=== PATIENT | female | born 1965 | race Caucasian/White ===

== ENCOUNTER 2017-03-16 11:40 | Outpatient (CLI) | payer BC ==
[2017-03-16 15:25] LABS: ALBUMIN/GLOBULIN RATIO 1.7 (1.0-2.2); BILIRUBIN,TOTAL 0.6 mg/dL (0.2-1.0); CALCIUM 9.3 mg/dL (8.5-10.3); CREATININE 0.8 mg/dL (0.4-1.0); POTASSIUM 4.6 mmol/L (3.5-5.0); TOTAL PROTEIN 6.9 g/dL (6.7-8.2)
[2017-03-16 15:41] LABS: BASOPHILS % (AUTO) 0.9 %; EOSINOPHILS # (AUTO) 0.1 10^3/uL (0.0-0.7); EOSINOPHILS % (AUTO) 3.5 %; HCT - HEMATOCRIT 40.7 % (37.0-47.0); HGB - HEMOGLOBIN 13.8 g/dL (12.0-16.0); LYMPHOCYTES # (AUTO) 1.6 10^3/uL (1.5-3.5); LYMPHOCYTES % (AUTO) 40.7 %; MEAN CORPUSCULAR HEMOGLOBIN 31.4 pg (27.0-31.0); MEAN CORPUSCULAR HGB CONC 33.8 g/dL (32.0-36.0); MEAN PLATELET VOLUME 8.2 fL (7.9-10.8); MONOCYTES # (AUTO) 0.4 10^3/uL (0.0-1.0); MONOCYTES % (AUTO) 9.4 %; NEUTROPHILS # (AUTO) 1.8 10^3/uL (1.5-6.6); NEUTROPHILS % (AUTO) 45.5 %; RED BLOOD COUNT 4.38 10^6/uL (4.20-5.40); RED CELL DISTRIBUTION WIDTH 13.5 % (12.0-15.0)
[2017-03-16 16:13] LABS: THYROID STIMULATING HORMONE 1.03 uIU/mL (0.34-5.60)
== END 2017-03-16 11:41 | disposition home or self-care (01) ==
LOC: LAB.R 11:40
PROVIDERS: ATTEND Physician Assistant Medical
DX: E55.9 Vitamin D deficiency, unspecified (principal); L65.9 Nonscarring hair loss, unspecified; Z79.899 Other long term (current) drug therapy; E03.9 Hypothyroidism, unspecified
CPT/HCPCS: 80053; 82306; 82607; 82728; 83735; 84439; 84443; 84481; 85025

== ENCOUNTER 2017-04-03 10:10 | Outpatient (CLI) | payer BC ==
--- NOTE | 2017-04-04 16:12 | XRAY Report ---
THORACOLUMBAR JUNCTION, TWO VIEWS: 04/03/2017 HISTORY: Pain. FINDINGS: Two views of the thoracolumbar junction show no evidence of fracture, bone destruction, si gnificant degenerative change or other abnormality. Imaging is performed from approximately mid T10 through inferior L3. IMPRESSION: NEGATIVE THORACOLUMBAR JUNCTION. JOB #: [id number] EXT JOB #:[id number]
== END 2017-04-03 10:11 | disposition home or self-care (01) ==
LOC: DI 10:10
PROVIDERS: ATTEND Physician Assistant Medical
DX: M54.9 Dorsalgia, unspecified (principal)
CPT/HCPCS: 72080

== ENCOUNTER 2018-09-06 09:04 | Outpatient (CLI) | payer BC ==
--- NOTE | 2018-09-09 09:00 | Mammography Report ---
Reason: SCREENING MAMMO Procedure Date: 09/06/2018 Accession Number: [id number] / [id number] Procedure: CAROLYN - Screening Mammo w/Torres CPT Code: FULL RESULT: EXAM: Screening Mammo w/[facility] DATE: 09/06/2018 9:37 AM CLINICAL HISTORY: Routine screening. No reported personal history of breast cancer. Family history breast cancer paternal grandmother, age unknown. TECHNIQUE: (B) - Bilateral CC and MLO views were obtained. COMPARISON: 10/29/2015 through 03/04/2014 PARENCHYMAL PATTERN: (A) - The breasts demonstrate scattered fibroglandular densities bilaterally. FINDINGS: Bilateral breasts There are no suspicious masses, calcifications, or areas of distortion. IMPRESSION: Negative examination. BI-RADS category 1. RECOMMENDATION: (ANNUAL) - Recommend routine annual screening mammography. BI-RADS CATEGORY: (1) - Negative. STANDARD QUALIFYING STATEMENTS: 1. This examination was not reviewed with the aid of Computer-Aided Detection (CAD). 2. A negative or benign imaging report should not preclude biopsy if clinically suspicious findings are present. 3. Dense breasts may obscure an underlying neoplasm. 4. This examination was reviewed with the aid of 3D breast imaging (tomosynthesis).
== END 2018-09-06 09:05 | disposition home or self-care (01) ==
LOC: DI 09:04
PROVIDERS: ATTEND Family Medicine
DX: Z12.31 Encounter for screening mammogram for malignant neoplasm of breast (principal); Z80.3 Family history of malignant neoplasm of breast
CPT/HCPCS: 77063; 77067

== ENCOUNTER 2018-11-08 13:28 | Outpatient (CLI) | payer BC | END 2018-11-08 13:29 | disposition home or self-care (01) | LOC: RT 13:28 | PROVIDERS: ATTEND Family Medicine | DX: G43.909 Migraine, unspecified, not intractable, without status migrainosus (principal) | CPT/HCPCS: 93005 ==

== ENCOUNTER 2020-03-17 11:19 | Outpatient (CLI) | payer BC ==
--- NOTE | 2020-03-17 12:06 | XRAY Report ---
PROCEDURE: Thoracic Spine 2 View INDICATIONS: INCREASING PAIN IN HOSSEIN NUMBNESS UP EXTREMITIES TECHNIQUE: 3 views of the thoracic spine were acquired. COMPARISON: None. FINDINGS: Bones: No fractures or dislocations. No suspicious bony lesions. 12 pairs of ribs are noted, and a ppear intact where visualized. Soft tissues: No paravertebral stripe thickening. IMPRESSION: This is a normal study. Reviewed by: Yadiel Bravo MD on 03/17/2020 12:05 PM [facility] Approved by: Yadiel Bravo MD on 03/17/2020 12:05 PM [facility] Station ID: [id number]
--- NOTE | 2020-03-17 12:18 | XRAY Report ---
PROCEDURE: Lumbar Spine 2 View INDICATIONS: INCREASING PAIN IN HOSSEIN NUMBNESS UP EXTREMITIES TECHNIQUE: 2 views of the lumbar spine were acquired. COMPARISON: Thoracic spine plain films 03/17/2020 reviewed. Also, thoracolumbar spine plain films FINDINGS: Bones: 5 [id number]-[id number]-[id number] vertebrae are present. There is normal bony alignment. No vertebral body compression fractures. No suspicious bony lesions. There is a mild degree of degenerative disc heigh t reduction at L5-S1. Moderate facet osteoarthritis is present that becomes progressively more promin ent from L3 through S1. Soft tissues: Overlying bowel gas pattern is normal. No suspicious soft tissue calcifications. IMPRESSION: Progressively greater degenerative disc disease and facet osteoarthritis is seen as the lumbosacral junction is approached, with likelihood of spinal and foraminal stenosis at L5-S1. Reviewed by: Yadiel Bravo MD on 03/17/2020 12:17 PM PST Approved by: Yadiel Bravo MD on 03/17/2020 12:17 PM PST Station ID: [id number]
--- NOTE | 2020-03-17 12:20 | XRAY Report ---
PROCEDURE: Cervical Spine 2 View INDICATIONS: INCREASING PAIN IN HOSSEIN NUMBNESS UP EXTREMITIES TECHNIQUE: 3 view(s) of the cervical spine were acquired. COMPARISON: Thoracic spine plain films 03/17/2020, same date. FINDINGS: Bones: No fractures or dislocations to the T1 level. The lateral masses of C1 appear intact on the odontoid view. No suspicious bony lesions. Note is made of moderate degenerative disc disease on th e lateral view at C6-C7, without subluxation. Small anterior and posterior projecting osteophytes at this level could produce a mild degree of spinal stenosis. Soft tissues: No prevertebral soft tissue swelling. IMPRESSION: Moderate degenerative disc disease C6-C7 with potential for mild secondary spinal stenos is. Reviewed by: Yadiel Bravo MD on 03/17/2020 12:18 PM PST Approved by: Yadiel Bravo MD on 03/17/2020 12:18 PM PST Station ID: [id number]
== END 2020-03-17 11:20 | disposition home or self-care (01) ==
LOC: DI 11:19
PROVIDERS: ATTEND Nurse Practitioner Family
DX: M54.6 Pain in thoracic spine (principal); M47.817 Spondylosis without myelopathy or radiculopathy, lumbosacral region; M47.816 Spondylosis without myelopathy or radiculopathy, lumbar region; M51.37 Other intervertebral disc degeneration, lumbosacral region; M50.323 Other cervical disc degeneration at C6-C7 level
CPT/HCPCS: 72040; 72070; 72100

== ENCOUNTER 2020-11-24 07:00 | Outpatient (CLI) | payer BC ==
[2020-11-25 12:29] LABS: BILIRUBIN,URINE NEGATIVE (NEGATIVE); GLUCOSE, URINE (UA) NEGATIVE (NEGATIVE); KETONES,URINE (UA) NEGATIVE (NEGATIVE); LEUKOCYTE ESTERASE, URINE NEGATIVE (NEGATIVE); NITRITE,URINE NEGATIVE (NEGATIVE); OCCULT BLOOD,URINE TRACE-INTA (NEGATIVE); PH,URINE 6.5 PH (5.0-7.5); PROTEIN,URINE NEGATIVE (NEGATIVE); UROBILINOGEN,URINE 0.2 (NORMAL) E.U./dL (NORMAL)
[2020-11-25 12:31] LABS: CLARITY,URINE CLEAR (CLEAR)
[2020-11-25 13:01] LABS: BACTERIA,URINE Rare /HPF (None Seen); RBC,URINE 0-5 /HPF (0-5); SQUAMOUS EPITHELIAL CELL,UR RARE Squamous (<= Few); WBC,URINE 0-3 /HPF (0-5)
== END 2020-11-24 23:59 | disposition home or self-care (01) ==
LOC: LAB.R 07:00
PROVIDERS: ATTEND Obstetrics & Gynecology
DX: R32 Unspecified urinary incontinence (principal)
CPT/HCPCS: 81001; 87086

== ENCOUNTER 2021-03-16 08:31 | Outpatient (CLI) | payer BC ==
--- NOTE | 2021-03-17 09:21 | Mammography Report ---
BILATERAL DIGITAL SCREENING MAMMOGRAM 3D/2D: 03/16/2021 CLINICAL: Routine screening. Comparison is made to exams dated: 09/06/2018 mammogram and 10/29/2015 mammogram - [facility]. The tissue of both breasts is heterogeneously dense. This may lower the sensitivity of sandra mography. No significant masses, calcifications, or other findings are seen in either breast. There has been no significant interval change. IMPRESSION: NEGATIVE There is no mammographic evidence of malignancy. A 1 year screening mammogram is recommended. This exam was interpreted at Station ID: [id number]. NOTE: For mammograms, a report in lay terms will be sent to the patient. Approximately 15% of breast malignancies will not be visualized mammographically. In the management of a palpable breast mass, a negative mammogram must not discourage biopsy of a clinically suspicious lesion. Electronically Signed By: Clayton smith/taylor:03/16/2021 09:06:45 ACR BI-RADS Category 1: Negative 3341F PARENCHYMAL PATTERN: (D) - The breast(s) demonstrate(s) heterogeneously dense fibroglandular stacy muniz. BI-RADS CATEGORY: (1) - 1 RECOMMENDATION: (ANNUAL) - Recommend routine annual screening mammography. [id number] 1 year screening LATERALITY: (B)
== END 2021-03-16 08:32 | disposition home or self-care (01) ==
LOC: DI 08:31
DX: Z12.31 Encounter for screening mammogram for malignant neoplasm of breast (principal)

== ENCOUNTER 2021-05-06 08:49 | Outpatient (CLI) | payer BC ==
--- NOTE | 2021-05-06 10:34 | CT Report ---
PROCEDURE: Sinuses INDICATIONS: SINUSITIS-ACUTE, NASAL SINUS POLYP TECHNIQUE: Noncontrast 3.0 mm axial images acquired from the frontal sinuses to the mid-sella, with coronal and sagittal reformats. For radiation dose reduction, the following was used: automated exposure control , adjustment of mA and/or kV according to patient size. COMPARISON: None. FINDINGS: Image quality: Excellent. Maxillary Sinuses: No bony remodeling or destruction. Minimal mucosal thickening is seen involving the inferior maxillary sinuses. Ethmoid Air Cells: No bony remodeling or destruction. Sinuses are clear. Sphenoid Sinuses: Sphenoid sinuses are well-developed and extend laterally. There is moderate mucosal thickening seen inferiorly on the right, as on series 5 image 25, with mild mucosal thickening on th e left. Frontal Sinuses: The frontal sinuses are relatively poorly developed. No significant abnormality of t he frontal sinuses can be seen. Ostiomeatal Complexes: Ostiomeatal complexes are patent. No Fredrick cells. Miscellaneous: Visualized intra-orbital contents are normal. No terry bullosa. No nasal septal de viation. No significant nasal polyps are seen. IMPRESSION: Focal sphenoid sinus mucosal thickening, right worse than left. Minimal mucosal thickening can be seen involving the inferior maxillary sinuses. No significant polyps are seen. Reviewed by: Rusty Morrison MD on 05/06/2021 9:32 AM [facility] Approved by: Rusty Morrison MD on 05/06/2021 9:32 AM [facility] Station ID: [id number]
== END 2021-05-06 08:50 | disposition home or self-care (01) ==
LOC: DI 08:49
PROVIDERS: ATTEND Family Medicine
DX: J01.30 Acute sphenoidal sinusitis, unspecified (principal); J01.00 Acute maxillary sinusitis, unspecified; J33.8 Other polyp of sinus

== ENCOUNTER 2021-09-13 08:13 | Day surgery (SDC) | payer BC ==
[2021-09-13] MEDS ORDERED: LACTATED RINGERS 1,000 ML IV ONE ×2 (08:37→09:29)
[2021-09-13] MEDS ORDERED: MIDAZOLAM 2 MG/2 ML VIAL ONE (08:38)
--- NOTE | 2021-09-13 08:43 | ANESTHESIA ---
Pre-Anesthesia VS, & Labs - Diagnosis screening - Procedure colonoscopy Height: 5 ft 4 in Weight (kg): 61.4 kg Body Mass Index: 23.2 BMI Classification: Healthy weight - NPO >8 hours - Is Patient ?: No - Lab Results Lab results reviewed: Yes Home Medications and Allergies Home Medications: Ambulatory Orders Levothyroxine [Synthroid] 25 mcg PO QDAC 09/12/21 Nadolol [Corgard] 80 mg PO 09/12/21 Levothyroxine [Synthroid] 25 mcg PO QDAC 09/12/21 Nadolol [Corgard] 80 mg PO 09/12/21 Allergies/Adverse Reactions: Allergies Allergy/AdvReac Type Severity Reaction Status Date / Time amoxicillin Allergy Hives Verified 10/31/14 13:04 Anes History & Medical History - Anesthetic History Anesthesia Complications: reports: No previous complications, Other-see comment (per patient "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 Denies MH questions or pseudocholinesterase) Family history of Anesthesia Complications: Denies Family history of Malignant Hyperthermia: Denies - Medical History Cardiovascular: reports: None Pulmonary: reports: None Gastrointestinal: reports: None Urinary: reports: Other Musculoskeletal: reports: None Endocrine/Autoimmune: reports: None Skin: reports: None Smoking Status: Never smoker - Surgical History Gynecologic: reports: section Exam General: Alert, Oriented x3, Cooperative, No acute distress Dental: WNL Mouth Openin Fingerbreadth Neck Mobility: Normal Mallampati classification: II Plan Anesthesia Type: General Consent for Procedure(s) Verified and Reviewed: Yes Code Status: Attempt Resuscitation ASA classification: 1-Healthy patient Is this case an emergency?: No
[2021-09-13] MEDS ORDERED: LIDOCAINE-MPF 2% 5 ML VIAL ONE (09:21)
--- NOTE | 2021-09-13 10:27 | ANESTHESIA POST OP EVALUATION ---
Anesthesia Post Eval - Post Anesthesia Eval Vitals: Last Vital Signs Temp 36 C L 09/13/21 09:45 Pulse 63 09/13/21 09:45 Resp 16 09/13/21 09:45 BP 105/65 09/13/21 09:45 Pulse Ox 100 09/13/21 09:45 CV Function Including HR & BP: Stable Pain Control: Satisfactory Nausea & Vomiting: Negative Mental Status: Baseline Respiratory Status: Airway Patent Hydration Status: Satisfactory Anesthesia Complications: None
[2021-09-13 10:33] VITALS: BP 91/67
== END 2021-09-13 08:14 | disposition home or self-care (01) ==
LOC: SDS 08:13
PROVIDERS: ATTEND Surgery
PROC: 0DBL8ZZ Excision of Transverse Colon, Via Natural or Artificial Opening Endoscopic (ICD-10-PCS; principal; 2021-09-13 09:15)
DX: Z12.11 Encounter for screening for malignant neoplasm of colon (principal); D12.3 Benign neoplasm of transverse colon; K64.8 Other hemorrhoids
CPT/HCPCS: 45380; J7120

== ENCOUNTER 2022-01-31 13:30 | Outpatient (CLI) | payer BC ==
[2022-01-31 13:48] LABS: BASOPHILS # (AUTO) 0.1 10^3/uL (0.0-0.1); BASOPHILS % (AUTO) 0.9 %; EOSINOPHILS # (AUTO) 0.2 10^3/uL (0.0-0.7); EOSINOPHILS % (AUTO) 3.6 %; HCT - HEMATOCRIT 41.5 % (37.0-47.0); HGB - HEMOGLOBIN 13.9 g/dL (12.0-16.0); LYMPHOCYTES % (AUTO) 38.3 %; MEAN CORPUSCULAR HEMOGLOBIN 31.3 pg (27.0-31.0); MEAN CORPUSCULAR HGB CONC 33.5 g/dL (32.0-36.0); MEAN CORPUSCULAR VOLUME 93.5 fL (81.0-99.0); MEAN PLATELET VOLUME 9.3 fL (7.9-10.8); MONOCYTES # (AUTO) 0.5 10^3/uL (0.0-1.0); MONOCYTES % (AUTO) 8.5 %; NEUTROPHILS # (AUTO) 2.6 10^3/uL (1.5-6.6); NEUTROPHILS % (AUTO) 48.5 %; PLT - PLATELET COUNT 230 10^3/uL (130-450); RED BLOOD COUNT 4.44 10^6/uL (4.20-5.40); RED CELL DISTRIBUTION WIDTH 12.7 % (12.0-15.0); WHITE BLOOD COUNT 5.3 x10^3/uL (4.8-10.8)
[2022-01-31 14:07] LABS: ALBUMIN 4.5 g/dL (3.2-5.5); ALBUMIN/GLOBULIN RATIO 1.9 (1.0-2.2); ALKALINE PHOSPHATASE 62 IU/L (42-121); ALT ALANINE AMINOTRANSFERASE 16 IU/L (10-60); AST ASPARTATE AMINOTRANSFERASE 21 IU/L (10-42); BILIRUBIN,TOTAL 0.5 mg/dL (0.2-1.0); BUN - BLOOD UREA NITROGEN 16 mg/dL (6-20); CALCIUM 9.9 mg/dL (8.5-10.3); CARBON DIOXIDE - CO2 29 mmol/L (21-32); CHLORIDE 100 mmol/L (101-111); CHOL/HDL RATIO 3.2 (<4.4); CHOLESTEROL 249 mg/dL; CREATININE 0.7 mg/dL (0.4-1.0); GFR - MDRD 87 (>89); GLUCOSE 127 mg/dL (70-100); HDL CHOLESTEROL 78 mg/dL; LDL CHOLESTEROL,CALCULATED 150 mg/dL; LDL/HDL RATIO 1.9 (<4.4); SODIUM 138 mmol/L (135-145); TOTAL PROTEIN 6.9 g/dL (6.7-8.2); TRIGLYCERIDES 104 mg/dL; VLDL CHOLESTEROL 21 mg/dL
[2022-01-31 14:19] LABS: THYROID STIMULATING HORMONE 0.61 uIU/mL (0.34-5.60)
[2022-01-31 14:20] LABS: FREE T3 3.01 pg/mL (2.5-3.9)
[2022-01-31 14:21] LABS: FREE T4 (FREE THYROXINE) 1.21 ng/dL (0.58-1.64)
[2022-02-01 05:10] LABS: ESTRADIOL <5.0 pg/mL (.); PROGESTERONE 0.2 ng/mL (.)
== END 2022-01-31 13:31 | disposition home or self-care (01) ==
LOC: LAB 13:30
PROVIDERS: ATTEND Family Medicine
DX: G43.909 Migraine, unspecified, not intractable, without status migrainosus (principal); E55.9 Vitamin D deficiency, unspecified; E03.9 Hypothyroidism, unspecified; L65.9 Nonscarring hair loss, unspecified
CPT/HCPCS: 36415; 80053; 80061; 82670; 83721; 84144; 84403; 84439; 84443; 84481; 85025

== ENCOUNTER 2022-04-19 09:13 | Emergency (ER) | payer BC ==
--- NOTE | 2022-04-19 10:04 | CT Report ---
PROCEDURE: HEAD WO INDICATIONS: fall/head injury TECHNIQUE: Noncontrast 4.5 mm thick angled axial sections acquired from the foramen magnum to the vertex. For r adiation dose reduction, the following was used: automated exposure control, adjustment of mA and/or kV according to patient size. COMPARISON: None. FINDINGS: Image quality: Excellent. CSF spaces: Basal cisterns are patent. No extra-axial fluid collections. Ventricles are normal in size and shape. Brain: No midline shift. No intracranial masses or hemorrhage. Adam-white matter interface is norm al. Skull and face: Small subgaleal hematoma, left posterior parietal region. Calvarium and visualized f acial bones are intact, without suspicious lesions. Sinuses: Visualized sinuses and mastoids are clear. IMPRESSION: No evidence acute intracranial abnormality Reviewed by: Martell Verde MD on 04/19/2022 10:03 AM PST Approved by: Martell Verde MD on 04/19/2022 10:03 AM PST Station ID: [id number]
--- NOTE | 2022-04-19 10:06 | CT Report ---
PROCEDURE: CERVICAL SPINE WO INDICATIONS: fall/pain TECHNIQUE: Noncontrast 3 mm thick sections acquired from the skull base to the T4 level. Sagittal and coronal r eformats were then constructed. For radiation dose reduction, the following was used: automated exp osure control, adjustment of mA and/or kV according to patient size. COMPARISON: None. FINDINGS: Image quality: Excellent. Bones: No fractures or dislocations. Visualized superior ribs are intact. Cervical spondylosis is centered at C6-C7 with disc height loss and bilateral uncovertebral joint hypertrophy and bilateral f oraminal narrowing. Soft tissues: Prevertebral soft tissues are normal in thickness. No paravertebral hematomas. No ap ical pneumothoraces. IMPRESSION: 1. No evidence acute cervical fracture or dislocation. 2. Cervical spondylosis, centered at C6-C7. Reviewed by: Martell Verde MD on 04/19/2022 10:04 AM PST Approved by: Martell Verde MD on 04/19/2022 10:04 AM PST Station ID: [id number]
--- NOTE | 2022-04-19 10:29 | ED Physician Documentation ---
PD HPI HEAD INJURY - Stated complaint Stated Complaint: FALL/HEAD INJ - Chief complaint Chief Complaint: Trauma Hd/Nk - History obtained from History obtained from: Patient - Additional information Additional information: Patient is a 57-year-old with no significant past medical history presenting for evaluation after a ground-level fall. She slipped and fell on the ice striking the back of her head. She had no LOC. She does report having some pain in her neck. She does not take a blood thinner. She denies nausea, vomiting, dizziness or lightheadedness. Denies numbness or weakness to arms or legs. Review of Systems Constitutional: denies: Fever Cardiac: denies: Chest pain / pressure Respiratory: denies: Dyspnea GI: denies: Abdominal Pain : denies: Dysuria Musculoskeletal: reports: Neck pain Neurologic: reports: Headache PD PAST MEDICAL HISTORY - Past Medical History Cardiovascular: None Respiratory: None Neuro: Migraines Endocrine/Autoimmune: None GI: None BILLING DEPARTMENT SUPERVISOR: None : Other HEENT: Chronic hearing loss Psych: None Musculoskeletal: None Derm: None - Past Surgical History Past Surgical History: Yes /BILLING DEPARTMENT SUPERVISOR: section - Present Medications Home Medications: Ambulatory Orders Medication Instructions Recorded Confirmed HYDROcod/ACETAM 5/325 [[place] 5/325] 1 tab PO Q6HR PRN #10 tablet 04/19/22 Levothyroxine [Synthroid] 100 mcg PO QDAC 04/19/22 04/19/22 nadoloL [Corgard] 20 mg PO DAILY 04/19/22 04/19/22 - Allergies Allergies/Adverse Reactions: Allergies Allergy/AdvReac Type Severity Reaction Status Date / Time amoxicillin Allergy Hives Verified 04/19/22 09:26 Penicillins Allergy Hives Verified 04/19/22 09:26 - Social History Does the pt smoke?: No Smoking Status: Never smoker Does the pt drink ETOH?: Yes Does the pt have substance abuse?: No - Immunizations Immunizations are current?: Yes - POLST Patient has POLST: No PD ED PE NORMAL - General General: Alert and oriented X 3, No acute distress, Well developed/nourished - HEENT HEENT: PERRL, EOMI, Pharynx benign, Other (Occipital scalp hematoma) - Neck Neck: Supple, no meningeal sign. 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 She does have a posterior scalp hematoma. Her neuro exam is normal. She does have mild C-spine tenderness. Patient was placed into a cervical collar upon arrival. A CT Head and cervical spine were both obtained which are negative for acute findings. Patient cervical collar was removed and based on her exam I also do not suspect a ligamentous disruption.Patient was worried that her pain in her head would worsen. She does agree to having a small amount of narcotic pain medication should she need it. She is agreeable to trial of Tylenol while she is here.Patient counseled on concerning symptoms to return for and was ambulatory at discharge. Departure - Departure Disposition: 01 Home, Self Care Clinical Impression: Head injury Qualifiers: Encounter type: initial encounter Qualified Code(s): S09.90XA - Unspecified injury of head, initial encounter Scalp hematoma Qualifiers: Encounter type: initial encounter Qualified Code(s): S00.03XA - Contusion of scalp, initial encounter Condition: Stable Instructions: ED Head Injury Closed, ED Hematoma Prescriptions: HYDROcod/ACETAM 5/325 [[place] 5/325] 1 tab PO Q6HR PRN #10 tablet PRN Reason: Pain Comments: You were evaluated after a fall. Your head CT does not show signs of any intracranial injuries. Your neck CT does not show a broken or out of place bone. You do have some arthritic changes around C6-C7.I would recommend ice, anti-inflammatory medication such as ibuprofen or acetaminophen for pain. If you are requiring anything stronger I have sent a small amount of narcotic pain medication to the [facility] pharmacy. Please use caution when using this medication. I am prescribing a short course of narcotic pain medication for you. These are potentially dangerous and addictive medications that should be used carefully. These medications may constipate you. Take an zise-wop-qxpecfr stool softener (docusate) twice daily with plenty of water while taking these medications. If you go 24 hours without a bowel movement, take [id number]-zfd-[id number] miralax, per package instructions. Do not drink or drive while taking these medications. If you received narcotic or sedating medications while in the emergency department, do not drive for 24 hours. Store this medication in a safe, secure place and out of reach of children. It is a violation of federal law to give or sell this medication to another person or to use in a manner other than prescribed. The ED will not refill narcotic prescriptions, including prescriptions lost or stolen. To dispose of unwanted medications: 1. [facility] at [address] [place] [address] in [place] has a medication drop box. They accept prescription medications (in pill form) Sunday through Sunday 9:00 a.m. to 5:00 p.m. 2. The [facility] accepts prescription medications (in pill form only) for disposal year round. Call for more information. 3. Contact the [facility] for the next [facility] sponsored prescription drug collection event. , [phone], or [phone]; Note that many narcotic pain relievers also contain Tylenol/acetaminophen. Please ensure that your total dose of acetaminophen from all sources does not exceed 3 g (3000 mg) per day. Discharge Date/Time: 04/19/22 10:45
[2022-04-19] MEDS: ACETAMINOPHEN 325 MG TABLET PO STA (10:36)
[2022-04-19 10:38] VITALS: BP 95/59
== END 2022-04-19 10:45 | disposition home or self-care (01) ==
LOC: ED 09:13
DX: S09.90XA Unspecified injury of head, initial encounter (principal); S00.03XA Contusion of scalp, initial encounter; M47.812 Spondylosis without myelopathy or radiculopathy, cervical region; W00.0XXA Fall on same level due to ice and snow, initial encounter
CPT/HCPCS: 70450; 72125; 99282; 99284; A9270

== ENCOUNTER 2022-10-10 11:00 | Emergency (ER) | payer BC ==
[2022-10-10] MEDS ORDERED: LORazepam 1 MG TABLET PO STA (11:27)
[2022-10-10] MEDS ORDERED: SODIUM CHLORIDE 0.9% 1,000 ML IV STA (11:28)
--- NOTE | 2022-10-10 11:33 | ED Physician Documentation ---
History of Present Illness - Stated complaint Stated Complaint: DIZZINESS, LOW BP - Chief complaint Chief Complaint: Neuro - History obtained from History obtained from: Patient, Friend - History of Present Illness Timing: Today - Additonal information Additional information: Ashlyn Damian is a 57-year-old female who works as a real estate paralegal here in [place] and she was at work today when she developed acute wooziness. She feels like she might even vomit and like she might pass out. She does not usually have these symptoms. She denies any recent fluid loss, no vomiting or diarrhea and she states that although she feels like she wants to maybe throw up she does not really feel like she wants to throw up. The patient states that she usually has a systolic blood pressure of about 85. Today her blood pressure in the emergency department is 113. She has been under stress she has recently brought her mother into the emergency department for evaluation of a kidney stone and her x- is currently trying to change the parenting plan. Her mother continues to have symptoms with a large stone and will need follow-up. The couple are due in court soon The patient has also has had a brother who is recently had a stroke. Her brother is only 2 years older than her. She feels that she is under significant stress currently. She states that she usually has a lot of stress in her life. Review of Systems Constitutional: denies: Fever Eyes: denies: Decreased vision Ears: denies: Ear pain Nose: denies: Congestion Throat: denies: Sore throat Cardiac: denies: Chest pain / pressure, Palpitations Respiratory: denies: Dyspnea, Cough GI: reports: Nausea. denies: Abdominal Pain, Vomiting, Constipation, Diarrhea : denies: Dysuria Skin: denies: Rash Musculoskeletal: denies: Neck pain, Back pain, Extremity pain Neurologic: denies: Generalized weakness, Focal weakness, Numbness, Headache, Head injury, LOC PD PAST MEDICAL HISTORY - Past Medical History Cardiovascular: None Respiratory: None Neuro: Migraines Endocrine/Autoimmune: None GI: None PROJECT CONTROLS SCHEDULER: None : Other HEENT: Chronic hearing loss Psych: None Musculoskeletal: None Derm: None - Past Surgical History Past Surgical History: Yes /PROJECT CONTROLS SCHEDULER: section - Present Medications Home Medications: Ambulatory Orders Medication Instructions Recorded Confirmed HYDROcod/ACETAM 5/325 [[place] 5/325] 1 tab PO Q6HR PRN #10 tablet 04/19/22 Levothyroxine [Synthroid] 100 mcg PO QDAC 04/19/22 10/10/22 nadoloL [Corgard] 20 mg PO DAILY 04/19/22 10/10/22 - Allergies Allergies/Adverse Reactions: Allergies Allergy/AdvReac Type Severity Reaction Status Date / Time amoxicillin Allergy Hives Verified 04/19/22 09:26 Penicillins Allergy Hives Verified 04/19/22 09:26 - Social History Does the pt smoke?: No Smoking Status: Never smoker Does the pt drink ETOH?: Yes Does the pt have substance abuse?: No - Immunizations Immunizations are current?: Yes - POLST Patient has POLST: No PD ED PE NORMAL - Vitals Vital signs reviewed: Yes (hypertensive mild ) - General General: Alert and oriented X 3, Well developed/nourished, Other (appears mildly anxious) - HEENT HEENT: Atraumatic, PERRL, EOMI - Neck Neck: Supple, no meningeal sign, No bony TTP - Cardiac Cardiac: RRR, No murmur - Respiratory Respiratory: No respiratory distress, Clear bilaterally - Abdomen Abdomen: Normal bowel sounds, Soft, Non tender, Non distended, No organomegaly - Back Back: No CVA TTP, No spinal TTP - Derm Derm: Normal color, Warm and dry, No rash - Extremities Extremities: No deformity, No edema - Neuro Neuro: Alert and oriented X 3, 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 Relevant findings are: Rate: Rate (enter#) (58) Rhythm: NSR Ischemia: Normal ST segments Computer interpretation: Agree with computer - Labs Labs: Laboratory Tests 10/10/22 10/10/22 10/10/22 12:11 12:11 12:11 WBC 4.9 RBC 4.57 Hgb 14.0 Hct 41.9 MCV 91.7 MCH 30.6 MCHC 33.4 RDW 12.4 Plt Count 231 MPV 9.7 Neut # (Auto) 2.6 Lymph # (Auto) 1.6 Jack # (Auto) 0.5 Eos # (Auto) 0.2 Baso # (Auto) 0.1 Absolute Nucleated RBC 0.00 Nucleated RBC % 0.0 Sodium 140 Potassium 4.7 Chloride 105 Carbon Dioxide 28 Anion Gap 7.0 BUN 14 Creatinine 0.8 Estimated GFR (MDRD) 74 L Glucose 106 H Calcium 9.1 Total Bilirubin 0.5 AST 20 ALT 16 Alkaline Phosphatase 58 Troponin I High Sens < 2.3 L Total Protein 6.9 Albumin 4.3 Globulin 2.6 Albumin/Globulin Ratio 1.7 Lipase 33 Urine Color Urine Clarity Urine pH Ur Specific [place] Urine Protein Urine Glucose (UA) Urine Ketones Urine Occult Blood Urine Nitrite Urine Bilirubin Urine Urobilinogen Ur Leukocyte Esterase Ur Microscopic Review Urine Culture Comments Urine HCG, Qual 10/10/22 12:45 WBC RBC Hgb Hct MCV MCH MCHC RDW Plt Count MPV Neut # (Auto) Lymph # (Auto) Jack # (Auto) Eos # (Auto) Baso # (Auto) Absolute Nucleated RBC Nucleated RBC % Sodium Potassium Chloride Carbon Dioxide Anion Gap BUN Creatinine Estimated GFR (MDRD) Glucose Calcium Total Bilirubin AST ALT Alkaline Phosphatase Troponin I High Sens Total Protein Albumin Globulin Albumin/Globulin Ratio Lipase Urine Color LIGHT YELLOW Urine Clarity CLEAR Urine pH 7.5 Ur Specific [place] 1.010 Urine Protein NEGATIVE Urine Glucose (UA) NEGATIVE Urine Ketones NEGATIVE Urine Occult Blood NEGATIVE Urine Nitrite NEGATIVE Urine Bilirubin NEGATIVE Urine Urobilinogen 0.2 (NORMAL) Ur Leukocyte Esterase NEGATIVE Ur Microscopic Review NOT INDICATED Urine Culture Comments NOT INDICATED Urine HCG, Qual NEGATIVE Procedures - IVC sono (time) 1128 Bedside IVC sono: IVC measures (cm) (1.18), IVC collapsed c insp (cm) (complete), Dehydration (est 1 liter deficit) PD Medical Decision Making - ED course Complexity details: reviewed old records, reviewed results, re-evaluated patient, considered differential, d/w patient, d/w family Reviewed Lab Results: We reviewed a complete blood count showing a normal white blood cell count normal hemoglobin hematocrit and platelets. Electrolytes were normal, kidney and liver function normal. High-sensitivity troponin 2.3, normal. Urinalysis entirely unremarkable and test negative. These laboratories are all unremarkable and benign appearing. They contribute to elimination of a number of things in the differential including electrolyte abnormality, overwhelming infection, silent [place] or unknown profound anemia as a cause for near syncope. We did do interrogation of the inferior vena cava with POCUS and found the patient had mild volume depletion. ED course: 57-year-old female who is under significant stress with her ex trying to change the parenting plan and her mother currently in pain with a kidney stone. She denies any symptoms of hyperventilation but does feel woozy and this has persisted. She feels this may be related to stress. I have agreed with the patient. We have evaluated the patient thoroughly found benign-appearing laboratory evaluation and we did find that she had some mild volume depletion. We corrected the volume depletion did not have much improvement in the patient's symptoms we did provide some Ativan prior to the placement of the IV as the patient has significant anxiety associated with that and again this Ativan did not seem to make a difference in the patient's feeling of wooziness. I did examine the patient thoroughly and found no evidence of nystagmus no evidence of otitis. I suspect the patient's symptoms are related to her level of stress. Departure - Departure Disposition: 01 Home, Self Care Clinical Impression: Dehydration, Stress reaction Condition: Stable Instructions: ED Stress React, ED Dehydration Follow-Up: Flash Umanzor MD [Primary Care Provider] - Comments: Ashlyn, today it does look like your feelings of wooziness are likely related to your level of stress. We did do blood counts, electrolytes, cardiac enzymes, urinalysis and test. All of these studies were unremarkable. This helps eliminate things like electrolyte abnormality, unknown profound anemia, overwhelming infection, , kidney or liver disfunction or silent heart attack. We found mild dehydration and corrected that. The type of stress that you are under where you do not have control of the outcome is the type that is likely to cause these symptoms. Discharge Date/Time: 10/10/22 13:25
[2022-10-10 12:22] LABS: BASOPHILS # (AUTO) 0.1 10^3/uL (0.0-0.1); EOSINOPHILS # (AUTO) 0.2 10^3/uL (0.0-0.7); EOSINOPHILS % (AUTO) 3.9 %; HCT - HEMATOCRIT 41.9 % (37.0-47.0); LYMPHOCYTES # (AUTO) 1.6 10^3/uL (1.5-3.5); LYMPHOCYTES % (AUTO) 31.9 %; MEAN CORPUSCULAR HEMOGLOBIN 30.6 pg (27.0-31.0); MEAN CORPUSCULAR HGB CONC 33.4 g/dL (32.0-36.0); MEAN CORPUSCULAR VOLUME 91.7 fL (81.0-99.0); MEAN PLATELET VOLUME 9.7 fL (7.9-10.8); MONOCYTES # (AUTO) 0.5 10^3/uL (0.0-1.0); MONOCYTES % (AUTO) 10.2 %; NEUTROPHILS # (AUTO) 2.6 10^3/uL (1.5-6.6); PLT - PLATELET COUNT 231 10^3/uL (130-450); RED BLOOD COUNT 4.57 10^6/uL (4.20-5.40); RED CELL DISTRIBUTION WIDTH 12.4 % (12.0-15.0); WHITE BLOOD COUNT 4.9 x10^3/uL (4.8-10.8)
[2022-10-10 12:36] LABS: ALBUMIN 4.3 g/dL (3.2-5.5); ALBUMIN/GLOBULIN RATIO 1.7 (1.0-2.2); BILIRUBIN,TOTAL 0.5 mg/dL (0.2-1.0); CALCIUM 9.1 mg/dL (8.5-10.3); CREATININE 0.8 mg/dL (0.4-1.0); POTASSIUM 4.7 mmol/L (3.5-5.0); TOTAL PROTEIN 6.9 g/dL (6.7-8.2)
[2022-10-10 12:55] LABS: BILIRUBIN,URINE NEGATIVE (NEGATIVE); GLUCOSE, URINE (UA) NEGATIVE (NEGATIVE); KETONES,URINE (UA) NEGATIVE (NEGATIVE); LEUKOCYTE ESTERASE, URINE NEGATIVE (NEGATIVE); NITRITE,URINE NEGATIVE (NEGATIVE); OCCULT BLOOD,URINE NEGATIVE (NEGATIVE); PH,URINE 7.5 PH (5.0-7.5); PROTEIN,URINE NEGATIVE (NEGATIVE); UROBILINOGEN,URINE 0.2 (NORMAL) E.U./dL (NORMAL)
[2022-10-10 13:00] LABS: CLARITY,URINE CLEAR (CLEAR); HCG UR QUAL NEGATIVE
[2022-10-10 13:14] VITALS: BP 112/60
== END 2022-10-10 13:25 | disposition home or self-care (01) ==
LOC: ED 11:00
DX: F43.9 Reaction to severe stress, unspecified (principal); E86.0 Dehydration; Z79.899 Other long term (current) drug therapy
CPT/HCPCS: 36415; 80053; 81003; 81025; 83690; 84484; 85025; 93005; 96360; 99284; J8499; 81001; 87086

== ENCOUNTER 2023-04-12 07:49 | Outpatient (CLI) | payer BC ==
[2023-04-12 08:16] LABS: BASOPHILS # (AUTO) 0.1 10^3/uL (0.0-0.1); BASOPHILS % (AUTO) 1.2 %; EOSINOPHILS # (AUTO) 0.2 10^3/uL (0.0-0.7); EOSINOPHILS % (AUTO) 3.9 %; HCT - HEMATOCRIT 39.5 % (37.0-47.0); HGB - HEMOGLOBIN 13.1 g/dL (12.0-16.0); LYMPHOCYTES # (AUTO) 1.8 10^3/uL (1.5-3.5); MEAN CORPUSCULAR HEMOGLOBIN 31.2 pg (27.0-31.0); MEAN CORPUSCULAR HGB CONC 33.2 g/dL (32.0-36.0); MEAN PLATELET VOLUME 9.5 fL (7.9-10.8); MONOCYTES # (AUTO) 0.5 10^3/uL (0.0-1.0); MONOCYTES % (AUTO) 10.4 %; NEUTROPHILS # (AUTO) 2.3 10^3/uL (1.5-6.6); NEUTROPHILS % (AUTO) 47.3 %; PLT - PLATELET COUNT 232 10^3/uL (130-450); RED CELL DISTRIBUTION WIDTH 13.2 % (12.0-15.0); WHITE BLOOD COUNT 4.9 x10^3/uL (4.8-10.8)
[2023-04-12 08:35] LABS: ALBUMIN 4.4 g/dL (3.2-5.5); ALBUMIN/GLOBULIN RATIO 2.1 (1.0-2.2); ALKALINE PHOSPHATASE 50 IU/L (42-121); ALT ALANINE AMINOTRANSFERASE 13 IU/L (10-60); AST ASPARTATE AMINOTRANSFERASE 16 IU/L (10-42); BILIRUBIN,TOTAL 0.5 mg/dL (0.2-1.0); BUN - BLOOD UREA NITROGEN 16 mg/dL (6-20); CALCIUM 9.3 mg/dL (8.5-10.3); CARBON DIOXIDE - CO2 31 mmol/L (21-32); CHLORIDE 103 mmol/L (101-111); CHOLESTEROL 224 mg/dL; CREATININE 0.8 mg/dL (0.6-1.3); GFR - MDRD 74 (>89); GLUCOSE 94 mg/dL (74-104); HDL CHOLESTEROL 75 mg/dL; LDL CHOLESTEROL,CALCULATED 120 mg/dL; LDL/HDL RATIO 1.6 (<4.4); POTASSIUM 3.9 mmol/L (3.5-4.5); SODIUM 138 mmol/L (135-145); TOTAL PROTEIN 6.5 g/dL (6.4-8.9); TRIGLYCERIDES 146 mg/dL (48-352); VLDL CHOLESTEROL 29 mg/dL
== END 2023-04-12 07:50 | disposition home or self-care (01) ==
LOC: LAB 07:49
PROVIDERS: ATTEND Family Medicine
DX: I95.9 Hypotension, unspecified (principal); G43.909 Migraine, unspecified, not intractable, without status migrainosus; E55.9 Vitamin D deficiency, unspecified; E03.9 Hypothyroidism, unspecified; Z78.0 Asymptomatic menopausal state
CPT/HCPCS: 36415; 80053; 80061; 82306; 83721; 84443; 85025

== ENCOUNTER 2023-06-04 13:55 | Outpatient (CLI) | payer BC ==
--- NOTE | 2023-06-05 16:23 | Mammography Report ---
BILATERAL DIGITAL SCREENING MAMMOGRAM 3D/2D: 06/04/2023 CLINICAL: Routine screening. Comparison is made to exams dated: 03/16/2021 mammogram, 09/06/2018 mammogram, 10/29/2015 mammogram, mammogram, and 03/04/2014 mammogram - [facility]. Both breasts are heterogeneously dense, which may obscure small masses (category c / 51-75% glandular tissue). No significant masses, calcifications, or other findings are seen in either breast. There has been no significant interval change. IMPRESSION: NEGATIVE There is no mammographic evidence of malignancy. A 1 year screening mammogram is recommended. Based on the Tyrer Cuzick model (a risk assessment model) the patient's lifetime risk is 14.9% and he r 10 year risk is 4.9%. According to the ACR, ACS, and NCCN guidelines, an annual breast MRI exam sussy ng with mammogram is recommended if the patient's lifetime risk is 20% or greater. This exam was interpreted at Station ID: [id number]. NOTE: For mammograms, a report in lay terms will be sent to the patient. Approximately 15% of breast malignancies will not be visualized mammographically. In the management of a palpable breast mass, a negative mammogram must not discourage biopsy of a clinically suspicious lesion. Electronically Signed By: Alyse armendariz/taylor:06/04/2023 15:35:23 letter sent: No_Letter ACR BI-RADS Category 1: Negative 3341F PARENCHYMAL PATTERN: (D) - The breast(s) demonstrate(s) heterogeneously dense fibroglandular stacy muniz. BI-RADS CATEGORY: (1) - 1 Mammogram [id number] 1 year screening LATERALITY: (B)
== END 2023-06-04 13:56 | disposition home or self-care (01) ==
LOC: DI 13:55
DX: Z12.31 Encounter for screening mammogram for malignant neoplasm of breast (principal); R92.333 Mammographic heterogeneous density, bilateral breasts

== ENCOUNTER 2023-07-13 10:45 | Outpatient (CLI) | payer BC | END 2023-07-13 10:46 | disposition home or self-care (01) | LOC: RT 10:45 | PROVIDERS: ATTEND Otolaryngology | DX: Z01.810 Encounter for preprocedural cardiovascular examination (principal) | CPT/HCPCS: 93005 ==

== ENCOUNTER 2023-12-11 21:28 | Emergency (ER) | payer BC ==
[2023-12-11 21:41] VITALS: BP 115/76; O2SAT 100
--- NOTE | 2023-12-11 22:15 | XRAY Report ---
PROCEDURE: Ankle 3+V RT INDICATIONS: FELL/TWISTED R ANKLE/ PAIN + TENDERNESS TECHNIQUE: 3 views of the ankle were acquired. COMPARISON: None. FINDINGS: Bones: Possible tiny avulsion fracture of the lateral malleolus. This measures 2 mm. Soft tissues: Moderate tibiotalar joint effusion. Achilles tendon appears normal. IMPRESSION: Possible tiny avulsion fracture of the lateral malleolus. Moderate tibiotalar joint effusion. Reviewed by: Ganesh Hopson MD on 12/11/2023 10:14 PM PDT Approved by: Ganesh Hopson MD on 12/11/2023 10:14 PM PDT Station ID: [id number]
--- NOTE | 2023-12-11 23:18 | ED Physician Documentation ---
PD HPI LOWER EXT INJURY - Stated complaint Stated Complaint: RT ANKLE INJ - Chief complaint Chief Complaint: Ext Problem - History obtained from History obtained from: Patient - Additional information Additional information: The patient comes to the emergency department chief complaint of right ankle pain after a fall while going down the stairs. She does not know exactly what she did to her ankle but feels that she may have twisted it. This happened this afternoon. The patient states she has had swelling over her lateral malleolus and immediately felt pain upon being injured. The patient states that is painful to bear weight. No prior injury to this ankle. No other injuries or complaints at this time. PD PAST MEDICAL HISTORY - Past Medical History Past Medical History: Yes Cardiovascular: None Respiratory: None Neuro: Migraines Endocrine/Autoimmune: None GI: None DIE FITTER: None : Other HEENT: Chronic hearing loss Psych: None Musculoskeletal: None Derm: None - Past Surgical History Past Surgical History: Yes /DIE FITTER: section - Present Medications Home Medications: Ambulatory Orders Medication Instructions Recorded Confirmed Levothyroxine [Synthroid] 100 mcg PO QDAC 04/19/22 10/10/22 nadoloL [Corgard] 20 mg PO DAILY 04/19/22 10/10/22 - Allergies Allergies/Adverse Reactions: Allergies Allergy/AdvReac Type Severity Reaction Status Date / Time amoxicillin Allergy Hives Verified 04/19/22 09:26 Penicillins Allergy Hives Verified 04/19/22 09:26 bupropion [From Wellbutrin] AdvReac Unknown Verified 12/11/23 21:37 - Social History Does the pt smoke?: No Smoking Status: Never smoker Does the pt drink ETOH?: Yes Does the pt have substance abuse?: No - Immunizations Immunizations are current?: Yes - POLST Patient has POLST: No PD ED PE NORMAL - Vitals Vital signs reviewed: Yes - General General: Alert and oriented X 3, No acute distress, Well developed/nourished - HEENT HEENT: Atraumatic, EOMI, Moist mucous membranes - Neck Neck: Supple, no meningeal sign - Cardiac Cardiac: Strong equal pulses - Respiratory Respiratory: No respiratory distress - Derm Derm: Normal color, Warm and dry, No rash - Extremities Extremities: No deformity, Other (Edema and tenderness over right lateral malleolus. No deformity.) - Neuro Neuro: Alert and oriented X 3 - Psych Psych: Normal mood, Normal affect Results - Vitals Vitals: Vital Signs - 24 hr 12/11/23 21:29 Temperature 36.2 C L Heart Rate 67 Respiratory 16 Rate Blood Pressure 115/76 O2 Saturation 100 Oxygen O2 Source Room air - Rads (name of study) Right ankle x-ray series Relevant Findings:: Final report received, See rad report (Avulsion fracture distal fibula) PD Medical Decision Making - ED course Complexity details: reviewed results, re-evaluated patient, considered differential, d/w patient, d/w family ED course: I discussed the results with the patient and her son. Patient was placed in a walking boot and instructed to get repeat x-rays done in about a week. We have discussed the expected timeline for healing. Departure - Departure Disposition: 01 Home, Self Care Clinical Impression: Avulsion fracture of distal fibula Right ankle sprain Qualifiers: Encounter type: initial encounter Involved ligament of ankle: unspecified ligament Qualified Code(s): S93.401A - Sprain of unspecified ligament of right ankle, initial encounter Condition: Stable Instructions: ED Sprain Ankle, ED Boot Aircast Walker Comments: Your x-ray mostly looks good but shows a tiny bone fragment that appears to been pulled off of The end of your fibula, the smaller bone in the outer portion of your lower leg that forms the outside "bump" of your ankle. Most likely this is from stretching of the ligament that connects your fibula with your talus, the large bone of the foot that receives your leg bones in the ankle joint. This is the most common area to undergo stress when the ankle is twisted. As we discussed, sometimes when the ligament comes under tension, it can pull a little fragment of bone off and separate from the bone to a degree. Like any sprain or fracture, this takes some weeks to heal, The generally does not require casting like a fracture would that involves more of the body of the bone. For now, we have placed you in a walking boot and you should wear this whenever you are up and about. You may take it off when you are not bearing weight. You should have a repeat x-ray in roughly a week for reevaluation. If your ankle is feeling better at that time and the x-ray looks good, then you can graduate to an ankle brace as needed. You should avoid any strenuous movements of the ankle for the next approximately 4 weeks to allow for full healing. You may use ibuprofen, Tylenol, and ice to help with symptoms. Forms: PCP List Discharge Date/Time: 12/11/23 23:31
== END 2023-12-11 23:31 | disposition home or self-care (01) ==
LOC: ED 21:28
DX: S82.61XA Displaced fracture of lateral malleolus of right fibula, initial encounter for closed fracture (principal); S93.401A Sprain of unspecified ligament of right ankle, initial encounter; W10.9XXA Fall (on) (from) unspecified stairs and steps, initial encounter; Z79.899 Other long term (current) drug therapy
CPT/HCPCS: 99283

== ENCOUNTER 2023-12-18 08:26 | Outpatient (CLI) | payer BC ==
--- NOTE | 2023-12-18 14:15 | XRAY Report ---
PROCEDURE: Ankle 3+V RT INDICATIONS: SPRAIN RIGHT CALCANEOFIBULAR LIGAMENT TECHNIQUE: 3 views of the ankle were acquired. COMPARISON: 12/11/2023 FINDINGS: Bones: Again seen is a possible tiny avulsion adjacent to the lateral malleolus. No acute displaced f racture or dislocation otherwise. Calcaneal enthesopathy. Mild tibiotalar and midfoot degenerative ch anges. Another possible small avulsion fragment, age indeterminate, seen adjacent to the fifth metata rsal base Soft tissues: No suspicious calcifications. IMPRESSION: Similar possible tiny avulsion fracture at the distal lateral malleolus. Another possible small avuls ion fragment, age indeterminate, seen adjacent to the fifth metatarsal base Mild background degenerative changes. Reviewed by: Homar Manzanares MD on 12/18/2023 2:14 PM PDT Approved by: Homar Manzanares MD on 12/18/2023 2:14 PM PDT Station ID: [id number]
== END 2023-12-18 08:27 | disposition home or self-care (01) ==
LOC: DI 08:26
PROVIDERS: ATTEND Physician Assistant
DX: S93.411A Sprain of calcaneofibular ligament of right ankle, initial encounter (principal); R93.6 Abnormal findings on diagnostic imaging of limbs; M19.071 Primary osteoarthritis, right ankle and foot

== ENCOUNTER 2023-12-21 09:28 | Outpatient (CLI) | payer BC ==
--- NOTE | 2023-12-21 10:39 | XRAY Report ---
PROCEDURE: Foot 3+V RT (Weight Bearing) INDICATIONS: RIGHT FOOT PAIN TECHNIQUE: 3 views of the foot were acquired. COMPARISON: None. FINDINGS: Bones: No fractures or dislocations. No suspicious bony lesions. Dorsal calcaneal enthesophyte. Soft tissues: No tibiotalar joint effusion. Achilles tendon appears normal. IMPRESSION: No acute bony abnormality. Reviewed by: Ganesh Hopson MD on 12/21/2023 10:37 AM PDT Approved by: Ganesh Hopson MD on 12/21/2023 10:37 AM PDT Station ID: [id number]
--- NOTE | 2023-12-21 14:32 | XRAY Report ---
PROCEDURE: Ankle 3+V RT INDICATIONS: SPRAIN OF CALCANEOFIBULAT LIGAMENT R TECHNIQUE: 3 views of the ankle were acquired. COMPARISON: Right ankle radiograph on December 18, 2023 and December 11, 2023. FINDINGS: Bones: Previously described tiny avulsion fracture of the lateral malleolus is not well seen. No ne w fracture. Ankle mortise is normally aligned. No suspicious bony lesions. Soft tissues: No tibiotalar joint effusion. Achilles tendon appears normal. IMPRESSION: Previously described tiny avulsion fracture of the lateral malleolus is not well seen. No new fractur e. Stable alignment. Reviewed by: Natasha Rucker MD on 12/21/2023 2:30 PM PDT Approved by: Natasha Rucker MD on 12/21/2023 2:30 PM PDT Station ID: [id number]
== END 2023-12-21 09:29 | disposition home or self-care (01) ==
LOC: DI 09:28
PROVIDERS: ATTEND Orthopaedic Surgery
DX: M79.671 Pain in right foot (principal); S93.411A Sprain of calcaneofibular ligament of right ankle, initial encounter